=== PATIENT | female | born 1930 | race Caucasian/White ===

== ENCOUNTER 2017-05-27 02:49 | Observation (INO) | payer OTHER ==
[2017-05-27 03:26] LABS: ADD MAN DIFF? NO
[2017-05-27 03:36] LABS: WHITE BLOOD COUNT 6.9 10^3/ul (4.8-10.8)
[2017-05-27 03:36] LABS: BASOPHIL # 0.1 10^3/ul (0.0-0.1); EOSINOPHILS # 0.4 10^3/ul (0.0-0.5); EOSINOPHILS % 5.1 % (0.0-7.0); HEMOGLOBIN 11.5 g/dl (12.0-16.0); LYMPHOCYTES # 2.1 10^3/ul (0.8-2.9); LYMPHOCYTES % 30.1 % (15.0-51.0); MEAN CORPUSCULAR HEMOGLOBIN 31.2 pg (29.0-33.0); MEAN CORPUSCULAR HGB CONC 33.8 g/dl (32.0-37.0); MEAN CORPUSCULAR VOLUME 92.1 fl (82.0-101.0); MEAN PLATELET VOLUME 9.2 fl (7.4-10.4); MONOCYTE # 0.5 10^3/ul (0.3-0.9); MONOCYTES % 7.1 % (0.0-11.0); NEUTROPHIL # 3.9 10^3/ul (1.6-7.5); NEUTROPHILS % 56.1 % (39.0-77.0); PLATELET COUNT 195 10^3/UL (140-415); RED BLOOD COUNT 3.69 10^6/ul (4.20-5.40); RED CELL DISTRIBUTION WIDTH 12.5 % (11.5-14.5)
[2017-05-27] MEDS: morphine 2 MG INJ IV ×2 (03:56→09:38)
[2017-05-27] MEDS: ONDANSETRON 4 MG INJ IV (03:56)
[2017-05-27 03:58] LABS: ANION GAP 15 (8-16); BLOOD UREA NITROGEN 17 mg/dl (7-20); CARBON DIOXIDE 28 mmol/L (21-31); CHLORIDE 105 mmol/L (97-110); GLUCOSE 153 mg/dl (70-220); POTASSIUM 4.1 mmol/L (3.5-5.1); SODIUM 144 mmol/L (135-144)
[2017-05-27 04:06] LABS: TROPONIN-I < 0.012 ng/ml (0.00-0.12)
[2017-05-27] MEDS: morphine 4 MG/ML VIAL IV (05:05)
[2017-05-27] MEDS ORDERED: ONDANSETRON 4 MG INJ IV (06:30)
[2017-05-27] MEDS ORDERED: BISACODYL 10 MG SUPP PR (06:30)
[2017-05-27] MEDS ORDERED: NACL 0.9% 3 ML SYG IV (06:30)
[2017-05-27] MEDS ORDERED: ALBUTEROL/IPRATROPIUM (NEB) 3 ML AMP HHN (06:30)
[2017-05-27] MEDS ORDERED: NITROGLYCERIN (SL) 0.4 MG TAB SL (06:30)
[2017-05-27] MEDS ORDERED: GLUCOSE GEL 15 GRAM TUBE BUCCAL (07:00)
[2017-05-27] MEDS ORDERED: GLUCOSE GEL 15 GRAM TUBE PO ×2 (07:00)
[2017-05-27] MEDS ORDERED: DEXTROSE 50% 50 ML SYRINGE IV ×2 (07:00)
[2017-05-27] MEDS ORDERED: GLUCAGON 1 MG INJ IM (07:00)
[2017-05-27] MEDS ORDERED: LORAZEPAM 2 MG INJ (07:16)
[2017-05-27] MEDS: LORAZEPAM 2 MG INJ IV ×2 (07:20→14:30)
[2017-05-27] MEDS: ASPIRIN 81 MG TAB PO (09:37)
[2017-05-27] MEDS: CLOPIDOGREL 75 MG TAB PO (09:37)
[2017-05-27] MEDS: ENOXAPARIN 40 MG/0.4 ML SYG SC (09:37)
[2017-05-27] MEDS: ALPRAZOLAM 0.25 MG TAB PO ×2 (09:37→17:49)
[2017-05-27] MEDS: OLANZAPINE 2.5 MG TAB PO (09:38)
[2017-05-27] MEDS: NIACIN 500 MG TAB PO (09:38)
[2017-05-27] MEDS: LEVOTHYROXINE 88 MCG TAB PO (09:39)
[2017-05-27] MEDS: metFORMIN 500 MG TAB PO ×2 (09:39→17:24)
[2017-05-27] MEDS: RANOLAZINE (SR) 500 MG TAB PO ×2 (09:40→21:00)
[2017-05-27] MEDS: ASCORBIC ACID 500 MG TAB PO (09:40)
[2017-05-27] MEDS: LEVETIRACETAM 500 MG TAB PO ×2 (09:40→21:06)
[2017-05-27] MEDS: LISINOPRIL 20 MG TAB PO (09:41)
[2017-05-27] MEDS: LACOSAMIDE (100 MG/10 ML PO SYR) PO ×2 (10:35→21:00)
[2017-05-27] MEDS: FOLIC ACID 1 MG TAB PO (10:35)
[2017-05-27 10:54] LABS: CREATINE KINASE 30 IU/L (23-200)
[2017-05-27 11:08] LABS: CK INDEX 2.7; CK-MB 0.82 ng/ml (0.0-2.4); TROPONIN-I < 0.012 ng/ml (0.00-0.12)
[2017-05-27 16:42] LABS: HEMOGLOBIN A1C 5.8 % (0-5.9)
[2017-05-27] MEDS: INSULIN ASPART [NOVOLOG] 3 ML PEN SC ×2 (17:24→21:00)
[2017-05-27 17:25] LABS: CREATINE KINASE 31 IU/L (23-200)
[2017-05-27 17:36] LABS: CK INDEX 2.8; CK-MB 0.88 ng/ml (0.0-2.4)
[2017-05-27 17:40] LABS: TROPONIN-I < 0.012 ng/ml (0.00-0.12)
[2017-05-27] MEDS: ATORVASTATIN 40 MG TAB PO (21:06)
[2017-05-27] MEDS: DOCUSATE SODIUM 100 MG CAP PO (21:06)
[2017-05-28] MEDS: ACCU-CHEK XX (02:00)
[2017-05-28] MEDS: LORAZEPAM 2 MG INJ IV (03:10)
[2017-05-28] MEDS: LEVOTHYROXINE 88 MCG TAB PO (07:23)
[2017-05-28] MEDS: INSULIN ASPART [NOVOLOG] 3 ML PEN SC ×4 (08:00→20:16)
[2017-05-28 08:30] LABS: ADD MAN DIFF? NO
[2017-05-28 08:34] LABS: ABNORMAL IP MESSAGE 1; BASOPHIL # 0.1 10^3/ul (0.0-0.1); BASOPHILS % 0.8 % (0.0-2.0); EOSINOPHILS # 0.9 10^3/ul (0.0-0.5); HEMATOCRIT 36.9 % (37.0-47.0); HEMOGLOBIN 12.6 g/dl (12.0-16.0); LYMPHOCYTES # 1.6 10^3/ul (0.8-2.9); LYMPHOCYTES % 17.6 % (15.0-51.0); MEAN CORPUSCULAR HEMOGLOBIN 31.8 pg (29.0-33.0); MEAN CORPUSCULAR HGB CONC 34.1 g/dl (32.0-37.0); MEAN CORPUSCULAR VOLUME 93.2 fl (82.0-101.0); MEAN PLATELET VOLUME 9.6 fl (7.4-10.4); MONOCYTE # 0.4 10^3/ul (0.3-0.9); MONOCYTES % 4.9 % (0.0-11.0); NEUTROPHILS % 66.1 % (39.0-77.0); PLATELET COUNT 199 10^3/UL (140-415); RED BLOOD COUNT 3.96 10^6/ul (4.20-5.40); RED CELL DISTRIBUTION WIDTH 11.9 % (11.5-14.5)
[2017-05-28 08:39] LABS: POSITIVE DIFF @See below
[2017-05-28] MEDS: ARTIFICIAL TEARS 15 ML OPH BOTH EYES (08:50)
[2017-05-28] MEDS: LISINOPRIL 20 MG TAB PO (08:50)
[2017-05-28] MEDS: NIACIN 500 MG TAB PO (08:51)
[2017-05-28] MEDS: LEVETIRACETAM 500 MG TAB PO ×2 (08:51→20:15)
[2017-05-28] MEDS: DIVALPROEX (EC) 250 MG TAB PO (08:51)
[2017-05-28] MEDS: metFORMIN 500 MG TAB PO ×2 (08:51→17:35)
[2017-05-28] MEDS: ALPRAZOLAM 0.25 MG TAB PO (08:51)
[2017-05-28] MEDS: ASPIRIN 81 MG TAB PO (08:51)
[2017-05-28] MEDS: CLOPIDOGREL 75 MG TAB PO (08:51)
[2017-05-28] MEDS: OLANZAPINE 2.5 MG TAB PO (08:51)
[2017-05-28] MEDS: RANOLAZINE (SR) 500 MG TAB PO ×2 (08:51→20:14)
[2017-05-28] MEDS: ASCORBIC ACID 500 MG TAB PO (08:52)
[2017-05-28] MEDS: FOLIC ACID 1 MG TAB PO (08:52)
[2017-05-28] MEDS: ENOXAPARIN 40 MG/0.4 ML SYG SC (08:54)
[2017-05-28 08:57] LABS: ANION GAP 15 (8-16); BLOOD UREA NITROGEN 16 mg/dl (7-20); CALCIUM 10.3 mg/dl (8.4-10.2); CARBON DIOXIDE 30 mmol/L (21-31); CHLORIDE 101 mmol/L (97-110); GLUCOSE 137 mg/dl (70-220); MAGNESIUM 1.4 mg/dl (1.7-2.5); PHOSPHORUS 3.4 mg/dl (2.5-4.9); POTASSIUM 4.7 mmol/L (3.5-5.1); SODIUM 141 mmol/L (135-144)
[2017-05-28] MEDS: LACOSAMIDE (100 MG/10 ML PO SYR) PO ×2 (09:27→21:31)
[2017-05-28] MEDS: ACETAMINOPHEN 325 MG TAB PO (12:27)
[2017-05-28] MEDS: MAGNESIUM SULFATE 3 GM in DEXTROSE 5% 100 ML IVPB (12:28)
[2017-05-28] MEDS: DOCUSATE SODIUM 100 MG CAP PO (20:14)
[2017-05-28] MEDS: ATORVASTATIN 40 MG TAB PO (20:14)
[2017-05-28] MEDS: morphine LIQ (10 MG/5 ML) CUP PO (21:38)
[2017-05-29] MEDS: ACCU-CHEK XX (00:37)
[2017-05-29] MEDS: morphine LIQ (10 MG/5 ML) CUP PO (02:41)
[2017-05-29] MEDS: LEVOTHYROXINE 88 MCG TAB PO (05:20)
[2017-05-29] MEDS: INSULIN ASPART [NOVOLOG] 3 ML PEN SC ×3 (08:00→17:47)
[2017-05-29] MEDS: LEVETIRACETAM 500 MG TAB PO (08:16)
[2017-05-29] MEDS: RANOLAZINE (SR) 500 MG TAB PO (08:16)
[2017-05-29] MEDS: DIVALPROEX (EC) 250 MG TAB PO (08:16)
[2017-05-29] MEDS: OLANZAPINE 2.5 MG TAB PO (08:16)
[2017-05-29] MEDS: NIACIN 500 MG TAB PO (08:17)
[2017-05-29] MEDS: CLOPIDOGREL 75 MG TAB PO (08:17)
[2017-05-29] MEDS: FOLIC ACID 1 MG TAB PO (08:17)
[2017-05-29] MEDS: LISINOPRIL 20 MG TAB PO (08:18)
[2017-05-29] MEDS: ASCORBIC ACID 500 MG TAB PO (08:18)
[2017-05-29] MEDS: ASPIRIN 81 MG TAB PO (08:18)
[2017-05-29] MEDS: ENOXAPARIN 40 MG/0.4 ML SYG SC (08:21)
[2017-05-29] MEDS: metFORMIN 500 MG TAB PO ×2 (08:30→17:47)
[2017-05-29 08:45] LABS: ADD MAN DIFF? NO
[2017-05-29 09:04] LABS: BASOPHIL # 0.1 10^3/ul (0.0-0.1); BASOPHILS % 0.8 % (0.0-2.0); EOSINOPHILS # 0.4 10^3/ul (0.0-0.5); EOSINOPHILS % 5.5 % (0.0-7.0); HEMATOCRIT 38.8 % (37.0-47.0); HEMOGLOBIN 12.8 g/dl (12.0-16.0); LYMPHOCYTES # 2.1 10^3/ul (0.8-2.9); MEAN CORPUSCULAR HEMOGLOBIN 30.6 pg (29.0-33.0); MEAN CORPUSCULAR VOLUME 92.8 fl (82.0-101.0); MEAN PLATELET VOLUME 9.5 fl (7.4-10.4); MONOCYTE # 0.6 10^3/ul (0.3-0.9); MONOCYTES % 7.2 % (0.0-11.0); NEUTROPHIL # 4.5 10^3/ul (1.6-7.5); NEUTROPHILS % 59.1 % (39.0-77.0); PLATELET COUNT 205 10^3/UL (140-415); RED BLOOD COUNT 4.18 10^6/ul (4.20-5.40); RED CELL DISTRIBUTION WIDTH 11.9 % (11.5-14.5)
[2017-05-29 09:04] LABS: WHITE BLOOD COUNT 7.7 10^3/ul (4.8-10.8)
[2017-05-29 09:19] LABS: ANION GAP 15 (8-16); BLOOD UREA NITROGEN 20 mg/dl (7-20); CARBON DIOXIDE 30 mmol/L (21-31); CHLORIDE 100 mmol/L (97-110); CREATININE 0.74 mg/dl (0.44-1.00); GLUCOSE 106 mg/dl (70-220); POTASSIUM 4.4 mmol/L (3.5-5.1); SODIUM 141 mmol/L (135-144)
[2017-05-29 09:20] LABS: PHOSPHORUS 2.8 mg/dl (2.5-4.9)
[2017-05-29 09:20] LABS: MAGNESIUM 1.7 mg/dl (1.7-2.5)
[2017-05-29] MEDS: LACOSAMIDE (100 MG/10 ML PO SYR) PO (09:50)
== END 2017-05-29 19:56 ==
LOC: E/R 02:49 → MS4 06:38
DX: R07.9 Chest pain, unspecified (principal); F03.90 Unspecified dementia, unspecified severity, without behavioral disturbance, psychotic disturbance, mood disturbance, and anxiety; Z79.82 Long term (current) use of aspirin; I10 Essential (primary) hypertension; E11.9 Type 2 diabetes mellitus without complications; Z79.84 Long term (current) use of oral hypoglycemic drugs; I25.10 Atherosclerotic heart disease of native coronary artery without angina pectoris; Z95.1 Presence of aortocoronary bypass graft; G40.909 Epilepsy, unspecified, not intractable, without status epilepticus; Z86.73 Personal history of transient ischemic attack (TIA), and cerebral infarction without residual deficits; E03.9 Hypothyroidism, unspecified; F41.9 Anxiety disorder, unspecified; E78.5 Hyperlipidemia, unspecified; I35.0 Nonrheumatic aortic (valve) stenosis
CPT/HCPCS: 36415; 71045; 80048; 82550; 82553; 82962; 83036; 83735; 84100; 84484; 85025; 87081; 93005; 96372; 96374; 96375; 96376; 99285-25; G0378

== ENCOUNTER 2017-06-02 08:15 | Emergency (ER) | payer OTHER ==
[2017-06-02] MEDS: SOD CHLORIDE 0.9% 1,000 ML IV (08:35)
[2017-06-02] MEDS: LACTATED RINGER'S 1,000 ML IV (08:40)
[2017-06-02] MEDS: ONDANSETRON 4 MG INJ IV (08:40)
[2017-06-02] MEDS: morphine 4 MG/ML VIAL IV (08:40)
[2017-06-02 08:57] LABS: ADD MAN DIFF? NO
[2017-06-02 08:59] LABS: BASOPHIL # 0.1 10^3/ul (0.0-0.1); BASOPHILS % 0.5 % (0.0-2.0); EOSINOPHILS # 0.3 10^3/ul (0.0-0.5); EOSINOPHILS % 2.4 % (0.0-7.0); HEMATOCRIT 34.7 % (37.0-47.0); HEMOGLOBIN 11.6 g/dl (12.0-16.0); LYMPHOCYTES # 1.9 10^3/ul (0.8-2.9); LYMPHOCYTES % 13.7 % (15.0-51.0); MEAN CORPUSCULAR HEMOGLOBIN 31.4 pg (29.0-33.0); MEAN CORPUSCULAR HGB CONC 33.4 g/dl (32.0-37.0); MEAN PLATELET VOLUME 9.8 fl (7.4-10.4); MONOCYTE # 1.1 10^3/ul (0.3-0.9); NEUTROPHIL # 10.5 10^3/ul (1.6-7.5); NEUTROPHILS % 74.8 % (39.0-77.0); PLATELET COUNT 192 10^3/UL (140-415); RED BLOOD COUNT 3.69 10^6/ul (4.20-5.40); RED CELL DISTRIBUTION WIDTH 11.9 % (11.5-14.5)
[2017-06-02 09:21] LABS: ALANINE AMINOTRANSFERASE 46 IU/L (13-69); ALBUMIN 3.6 g/dl (3.3-4.9); ALBUMIN/GLOBULIN RATIO 1.16; ALKALINE PHOSPHATASE 97 IU/L (42-121); ANION GAP 16 (8-16); ASPARTATE AMINO TRANSFERASE 23 IU/L (15-46); BILIRUBIN,INDIRECT 0.2 mg/dl (0-1.1); BILIRUBIN,TOTAL 0.2 mg/dl (0.2-1.3); BLOOD UREA NITROGEN 24 mg/dl (7-20); CALCIUM 10.4 mg/dl (8.4-10.2); CARBON DIOXIDE 30 mmol/L (21-31); CHLORIDE 100 mmol/L (97-110); CREATININE 0.71 mg/dl (0.44-1.00); GLUCOSE 160 mg/dl (70-220); LIPASE 75 U/L (23-300); POTASSIUM 4.2 mmol/L (3.5-5.1); SODIUM 142 mmol/L (135-144); TOTAL PROTEIN 6.7 g/dl (6.1-8.1)
[2017-06-02 09:35] LABS: ADD UMIC YES; TROPONIN-I < 0.012 ng/ml (0.00-0.12); UR ASCORBIC ACID 40 mg/dL (NEGATIVE); UR BACTERIA FEW /HPF (NONE SEEN); UR BILIRUBIN (Dip) NEGATIVE (NEGATIVE); UR BLOOD (Dip) NEGATIVE (NEGATIVE); UR CLARITY SLIGHTLY CLOUDY (CLEAR); UR COLOR YELLOW (YELLOW); UR GLUCOSE (Dip) NEGATIVE (NEGATIVE); UR KETONES (Dip) NEGATIVE (NEGATIVE); UR LEUKOCYTE ESTERASE (Dip) 3+ Leu/ul (NEGATIVE); UR NITRITE (Dip) NEGATIVE (NEGATIVE); UR RBC 2 /HPF (0-5); UR RENAL EPITHELIAL CELL FEW /HPF (NONE SEEN); UR TOTAL PROTEIN (Dip) NEGATIVE (NEGATIVE); UR UROBILINOGEN (Dip) NEGATIVE (NEGATIVE); UR WBC 63 /HPF (0-5)
[2017-06-02] MEDS: CEFEPIME 1GM/50 ML (PMX) 50 ML IVPB (10:02)
== END 2017-06-02 15:07 | disposition home or self-care (01) ==
LOC: E/R 08:15
DX: E86.0 Dehydration (principal); N39.0 Urinary tract infection, site not specified; I10 Essential (primary) hypertension; E11.9 Type 2 diabetes mellitus without complications; E03.9 Hypothyroidism, unspecified; I25.10 Atherosclerotic heart disease of native coronary artery without angina pectoris; Z79.84 Long term (current) use of oral hypoglycemic drugs; Z79.82 Long term (current) use of aspirin; Z95.1 Presence of aortocoronary bypass graft
CPT/HCPCS: 36415; 74176; 80053; 81001; 83690; 84484; 85025; 93005; 96374; 96375; 99285-25

== ENCOUNTER 2018-07-05 00:58 | Inpatient (IN) | payer OTHER ==
[2018-07-05] MEDS: ASPIRIN 81 MG TAB PO (01:33)
[2018-07-05 01:41] LABS: ADD MAN DIFF? NO
[2018-07-05 02:30] LABS: ANION GAP 10 (5-13); BLOOD UREA NITROGEN 18 mg/dl (7-20); CALCIUM 10.3 mg/dl (8.4-10.2); CARBON DIOXIDE 24 mmol/L (21-31); CHLORIDE 105 mmol/L (97-110); CREATININE 0.52 mg/dl (0.44-1.00); GLUCOSE 147 mg/dl (70-220); SODIUM 139 mmol/L (135-144)
[2018-07-05] MEDS ORDERED: ACETAMINOPHEN 325 MG TAB PO ×2 (02:30→05:00)
[2018-07-05] MEDS ORDERED: ONDANSETRON 4 MG INJ IV ×2 (02:30→05:00)
[2018-07-05 02:42] LABS: B-TYPE NATRIURETIC PEPTIDE 128 PG/ML (0-450); TROPONIN-I < 0.012 ng/ml (0.000-0.120)
[2018-07-05 03:14] LABS: BASOPHIL # 0.1 10^3/ul (0.0-0.1); BASOPHILS % 0.9 % (0.0-2.0); EOSINOPHILS # 0.6 10^3/ul (0.0-0.5); EOSINOPHILS % 8.4 % (0.0-7.0); HEMATOCRIT 38.7 % (37.0-47.0); LYMPHOCYTES # 1.8 10^3/ul (0.8-2.9); LYMPHOCYTES % 25.4 % (15.0-51.0); MEAN CORPUSCULAR HEMOGLOBIN 31.3 pg (29.0-33.0); MEAN CORPUSCULAR HGB CONC 33.6 g/dl (32.0-37.0); MEAN CORPUSCULAR VOLUME 93.3 fl (82.0-101.0); MONOCYTE # 0.5 10^3/ul (0.3-0.9); MONOCYTES % 7.2 % (0.0-11.0); NEUTROPHIL # 4.1 10^3/ul (1.6-7.5); NEUTROPHILS % 57.5 % (39.0-77.0); PLATELET COUNT 179 10^3/UL (140-415); RED BLOOD COUNT 4.15 10^6/ul (4.20-5.40); RED CELL DISTRIBUTION WIDTH 11.4 % (11.5-14.5)
[2018-07-05 04:36] LABS: INR 0.91; PROTIME 12.4 Sec (11.9-14.9)
[2018-07-05] MEDS ORDERED: GLUCAGON 1 MG INJ IM (05:00)
[2018-07-05] MEDS ORDERED: NITROGLYCERIN (SL) 0.4 MG TAB SL (05:00)
[2018-07-05] MEDS ORDERED: GLUCOSE GEL 15 GRAM TUBE BUCCAL (05:00)
[2018-07-05] MEDS ORDERED: DEXTROSE 50% 50 ML SYRINGE IV ×2 (05:00)
[2018-07-05] MEDS ORDERED: GLUCOSE GEL 15 GRAM TUBE PO ×2 (05:00)
[2018-07-05] MEDS: INSULIN ASPART [NOVOLOG] 3 ML PEN SC ×4 (07:33→20:22)
[2018-07-05 07:49] LABS: ADD MAN DIFF? NO
[2018-07-05 07:54] LABS: BASOPHILS % 0.6 % (0.0-2.0); EOSINOPHILS # 0.5 10^3/ul (0.0-0.5); EOSINOPHILS % 6.9 % (0.0-7.0); HEMATOCRIT 38.4 % (37.0-47.0); HEMOGLOBIN 12.8 g/dl (12.0-16.0); LYMPHOCYTES # 1.7 10^3/ul (0.8-2.9); LYMPHOCYTES % 24.3 % (15.0-51.0); MEAN CORPUSCULAR HEMOGLOBIN 30.9 pg (29.0-33.0); MEAN CORPUSCULAR HGB CONC 33.3 g/dl (32.0-37.0); MEAN CORPUSCULAR VOLUME 92.8 fl (82.0-101.0); MEAN PLATELET VOLUME 8.9 fl (7.4-10.4); MONOCYTE # 0.5 10^3/ul (0.3-0.9); MONOCYTES % 6.9 % (0.0-11.0); NEUTROPHIL # 4.2 10^3/ul (1.6-7.5); NEUTROPHILS % 60.7 % (39.0-77.0); PLATELET COUNT 191 10^3/UL (140-415); RED BLOOD COUNT 4.14 10^6/ul (4.20-5.40); RED CELL DISTRIBUTION WIDTH 11.4 % (11.5-14.5)
[2018-07-05 07:54] LABS: WHITE BLOOD COUNT 6.9 10^3/ul (4.8-10.8)
[2018-07-05 08:15] LABS: ANION GAP 11 (5-13); BLOOD UREA NITROGEN 16 mg/dl (7-20); CALCIUM 10.1 mg/dl (8.4-10.2); CARBON DIOXIDE 27 mmol/L (21-31); CHLORIDE 99 mmol/L (97-110); CREATININE 0.54 mg/dl (0.44-1.00); GLUCOSE 130 mg/dl (70-220); POTASSIUM 4.6 mmol/L (3.5-5.1); SODIUM 137 mmol/L (135-144)
[2018-07-05 08:20] LABS: CREATINE KINASE 27 IU/L (23-200)
[2018-07-05 08:25] LABS: TROPONIN-I < 0.012 ng/ml (0.000-0.120)
[2018-07-05 08:27] LABS: CK INDEX 3.1; CK-MB 0.83 ng/ml (0.0-2.4); TROPONIN-I < 0.012 ng/ml (0.000-0.120)
[2018-07-05] MEDS: RANOLAZINE (SR) 500 MG TAB PO ×2 (09:33→20:17)
[2018-07-05] MEDS: LISINOPRIL 20 MG TAB PO (09:34)
[2018-07-05] MEDS: CLOPIDOGREL 75 MG TAB PO (09:34)
[2018-07-05] MEDS: LEVETIRACETAM 500 MG TAB PO ×2 (09:34→20:16)
[2018-07-05] MEDS: ALPRAZOLAM 0.25 MG TAB PO ×2 (11:35→20:17)
[2018-07-05] MEDS: OLANZAPINE 2.5 MG TAB PO (11:40)
[2018-07-05 14:12] LABS: CREATINE KINASE 28 IU/L (23-200)
[2018-07-05 14:26] LABS: CK INDEX 2.8; CK-MB 0.77 ng/ml (0.0-2.4); TROPONIN-I < 0.012 ng/ml (0.000-0.120)
[2018-07-05] MEDS: metFORMIN 500 MG TAB PO (17:08)
[2018-07-05] MEDS: ACCU-CHEK XX ×2 (17:30→21:24)
[2018-07-05 19:32] LABS: TROPONIN-I 0.034 ng/ml (0.000-0.120)
[2018-07-05] MEDS: ATORVASTATIN 40 MG TAB PO (20:15)
[2018-07-05] MEDS: DOCUSATE SODIUM 100 MG CAP PO (20:15)
[2018-07-06] MEDS: ACCU-CHEK XX ×5 (02:00→21:15)
[2018-07-06] MEDS: LEVOTHYROXINE 88 MCG TAB PO (06:30)
[2018-07-06] MEDS: HYDROCODONE/APAP (5/325) TAB PO ×3 (06:32→18:15)
[2018-07-06] MEDS: INSULIN ASPART [NOVOLOG] 3 ML PEN SC ×4 (07:37→21:00)
[2018-07-06] MEDS: CLOPIDOGREL 75 MG TAB PO (08:34)
[2018-07-06] MEDS: ASPIRIN 81 MG TAB PO (08:34)
[2018-07-06] MEDS: metFORMIN 500 MG TAB PO ×2 (08:34→18:15)
[2018-07-06] MEDS: LEVETIRACETAM 500 MG TAB PO ×2 (08:34→20:21)
[2018-07-06] MEDS: MAGNESIUM HYDROXIDE 30ML CUP PO (08:34)
[2018-07-06] MEDS: CYANOCOBALAMIN 500 MCG TAB PO (08:34)
[2018-07-06] MEDS: CALCITRIOL 0.25 MCG CAP PO (08:34)
[2018-07-06] MEDS: RANOLAZINE (SR) 500 MG TAB PO ×2 (08:35→20:21)
[2018-07-06] MEDS: CALCIUM CARBONATE 1.25 GM TAB PO (08:35)
[2018-07-06] MEDS: NIACIN 500 MG TAB PO (08:35)
[2018-07-06] MEDS: ASCORBIC ACID 500 MG TAB PO (08:35)
[2018-07-06] MEDS: LISINOPRIL 20 MG TAB PO (08:35)
[2018-07-06] MEDS: MULTIVITAMINS/MINERALS TAB PO (08:35)
[2018-07-06] MEDS: FOLIC ACID 1 MG TAB PO (08:36)
[2018-07-06] MEDS: ALPRAZOLAM 0.25 MG TAB PO ×2 (08:39→17:11)
[2018-07-06] MEDS: OLANZAPINE 2.5 MG TAB PO (08:39)
[2018-07-06] MEDS: MUPIROCIN 2% 22 GM OINT TOP ×2 (12:22→20:22)
[2018-07-06] MEDS: ENOXAPARIN 30 MG/0.3 ML SYG SC (17:16)
[2018-07-06] MEDS: DOCUSATE SODIUM 100 MG CAP PO (20:21)
[2018-07-06] MEDS: ATORVASTATIN 40 MG TAB PO (20:21)
[2018-07-07] MEDS: ACCU-CHEK XX ×5 (02:00→21:00)
[2018-07-07] MEDS: HYDROCODONE/APAP (5/325) TAB PO ×2 (03:28→20:20)
[2018-07-07 06:38] LABS: ANION GAP 10 (5-13); BLOOD UREA NITROGEN 24 mg/dl (7-20); CALCIUM 10.5 mg/dl (8.4-10.2); CARBON DIOXIDE 29 mmol/L (21-31); CHLORIDE 99 mmol/L (97-110); CREATININE 0.76 mg/dl (0.44-1.00); GLUCOSE 131 mg/dl (70-220); MAGNESIUM 1.5 mg/dl (1.7-2.5); POTASSIUM 4.8 mmol/L (3.5-5.1); SODIUM 138 mmol/L (135-144)
[2018-07-07] MEDS: INSULIN ASPART [NOVOLOG] 3 ML PEN SC ×4 (07:48→20:14)
[2018-07-07] MEDS: OLANZAPINE 2.5 MG TAB PO (08:17)
[2018-07-07] MEDS: RANOLAZINE (SR) 500 MG TAB PO ×2 (08:17→20:14)
[2018-07-07] MEDS: ASPIRIN 81 MG TAB PO (08:18)
[2018-07-07] MEDS: LEVETIRACETAM 500 MG TAB PO ×2 (08:18→20:14)
[2018-07-07] MEDS: FOLIC ACID 1 MG TAB PO (08:18)
[2018-07-07] MEDS: ASCORBIC ACID 500 MG TAB PO (08:18)
[2018-07-07] MEDS: CYANOCOBALAMIN 500 MCG TAB PO (08:19)
[2018-07-07] MEDS: LISINOPRIL 20 MG TAB PO (08:19)
[2018-07-07] MEDS: MULTIVITAMINS/MINERALS TAB PO (08:19)
[2018-07-07] MEDS: MUPIROCIN 2% 22 GM OINT TOP ×2 (08:20→20:20)
[2018-07-07] MEDS: NIACIN 500 MG TAB PO (08:20)
[2018-07-07] MEDS: LEVOTHYROXINE 88 MCG TAB PO (08:20)
[2018-07-07] MEDS: ENOXAPARIN 30 MG/0.3 ML SYG SC (08:29)
[2018-07-07] MEDS: CLOPIDOGREL 75 MG TAB PO (08:32)
[2018-07-07] MEDS: metFORMIN 500 MG TAB PO ×2 (08:32→16:58)
[2018-07-07] MEDS: CALCIUM CARBONATE 1.25 GM TAB PO (08:33)
[2018-07-07] MEDS: CALCITRIOL 0.25 MCG CAP PO (08:35)
[2018-07-07] MEDS: MAGNESIUM SULFATE 2 GM/50 ML 50 ML IVPB (10:32)
[2018-07-07] MEDS: MAGNESIUM HYDROXIDE 30ML CUP PO (14:24)
[2018-07-07] MEDS: ATORVASTATIN 40 MG TAB PO (20:14)
[2018-07-07] MEDS: DOCUSATE SODIUM 100 MG CAP PO (20:14)
[2018-07-08] MEDS: ACCU-CHEK XX ×5 (02:00→21:00)
[2018-07-08] MEDS: ALPRAZOLAM 0.25 MG TAB PO ×3 (02:56→22:21)
[2018-07-08] MEDS: LEVOTHYROXINE 88 MCG TAB PO (05:58)
[2018-07-08] MEDS: INSULIN ASPART [NOVOLOG] 3 ML PEN SC ×4 (08:00→20:38)
[2018-07-08] MEDS: CLOPIDOGREL 75 MG TAB PO (08:43)
[2018-07-08] MEDS: RANOLAZINE (SR) 500 MG TAB PO ×2 (08:43→20:27)
[2018-07-08] MEDS: CYANOCOBALAMIN 500 MCG TAB PO (08:43)
[2018-07-08] MEDS: OLANZAPINE 2.5 MG TAB PO (08:43)
[2018-07-08] MEDS: ASCORBIC ACID 500 MG TAB PO (08:43)
[2018-07-08] MEDS: CALCIUM CARBONATE 1.25 GM TAB PO (08:44)
[2018-07-08] MEDS: MULTIVITAMINS/MINERALS TAB PO (08:44)
[2018-07-08] MEDS: LEVETIRACETAM 500 MG TAB PO ×2 (08:44→20:27)
[2018-07-08] MEDS: LISINOPRIL 20 MG TAB PO (08:45)
[2018-07-08] MEDS: CALCITRIOL 0.25 MCG CAP PO (08:45)
[2018-07-08] MEDS: NIACIN 500 MG TAB PO (08:45)
[2018-07-08] MEDS: ASPIRIN 81 MG TAB PO (08:45)
[2018-07-08] MEDS: FOLIC ACID 1 MG TAB PO (08:45)
[2018-07-08] MEDS: ENOXAPARIN 30 MG/0.3 ML SYG SC (08:51)
[2018-07-08] MEDS: metFORMIN 500 MG TAB PO ×2 (08:59→17:06)
[2018-07-08] MEDS: MUPIROCIN 2% 22 GM OINT TOP ×2 (09:00→20:30)
[2018-07-08] MEDS: LORAZEPAM 2 MG INJ IV (11:07)
[2018-07-08 13:24] LABS: ADD MAN DIFF? NO
[2018-07-08 13:32] LABS: BASOPHIL # 0.1 10^3/ul (0.0-0.1); BASOPHILS % 0.7 % (0.0-2.0); EOSINOPHILS # 0.3 10^3/ul (0.0-0.5); HEMATOCRIT 45.2 % (37.0-47.0); HEMOGLOBIN 14.9 g/dl (12.0-16.0); LYMPHOCYTES # 2.5 10^3/ul (0.8-2.9); LYMPHOCYTES % 23.7 % (15.0-51.0); MEAN CORPUSCULAR HEMOGLOBIN 30.5 pg (29.0-33.0); MEAN CORPUSCULAR VOLUME 92.6 fl (82.0-101.0); MONOCYTE # 0.7 10^3/ul (0.3-0.9); MONOCYTES % 6.7 % (0.0-11.0); NEUTROPHIL # 6.9 10^3/ul (1.6-7.5); NEUTROPHILS % 65.4 % (39.0-77.0); PLATELET COUNT 216 10^3/UL (140-415); RED BLOOD COUNT 4.88 10^6/ul (4.20-5.40); RED CELL DISTRIBUTION WIDTH 11.6 % (11.5-14.5)
[2018-07-08 13:32] LABS: WHITE BLOOD COUNT 10.5 10^3/ul (4.8-10.8)
[2018-07-08 13:57] LABS: ANION GAP 10 (5-13); BLOOD UREA NITROGEN 20 mg/dl (7-20); CALCIUM 11.2 mg/dl (8.4-10.2); CARBON DIOXIDE 29 mmol/L (21-31); CHLORIDE 100 mmol/L (97-110); GLUCOSE 159 mg/dl (70-220); SODIUM 139 mmol/L (135-144)
[2018-07-08 17:36] LABS: ADD UMIC NO; UR ASCORBIC ACID 40 mg/dL (NEGATIVE); UR BILIRUBIN (Dip) NEGATIVE (NEGATIVE); UR BLOOD (Dip) NEGATIVE (NEGATIVE); UR CLARITY CLEAR (CLEAR); UR COLOR YELLOW (YELLOW); UR GLUCOSE (Dip) NEGATIVE (NEGATIVE); UR KETONES (Dip) NEGATIVE (NEGATIVE); UR LEUKOCYTE ESTERASE (Dip) NEGATIVE Leu/ul (NEGATIVE); UR NITRITE (Dip) NEGATIVE (NEGATIVE); UR SPECIFIC GRAVITY (Dip) 1.014 (1.003-1.030); UR TOTAL PROTEIN (Dip) NEGATIVE (NEGATIVE); UR UROBILINOGEN (Dip) NEGATIVE (NEGATIVE)
[2018-07-08] MEDS: ATORVASTATIN 40 MG TAB PO (20:27)
[2018-07-08] MEDS: DOCUSATE SODIUM 100 MG CAP PO (20:27)
[2018-07-08] MEDS: morphine 2 MG INJ IV (21:46)
[2018-07-09] MEDS: ACCU-CHEK XX ×5 (02:00→21:24)
[2018-07-09 06:10] LABS: ADD MAN DIFF? NO
[2018-07-09 06:20] LABS: WHITE BLOOD COUNT 8.3 10^3/ul (4.8-10.8)
[2018-07-09 06:20] LABS: BASOPHIL # 0.1 10^3/ul (0.0-0.1); BASOPHILS % 1.2 % (0.0-2.0); EOSINOPHILS # 0.4 10^3/ul (0.0-0.5); EOSINOPHILS % 5.1 % (0.0-7.0); HEMATOCRIT 40.9 % (37.0-47.0); HEMOGLOBIN 13.7 g/dl (12.0-16.0); LYMPHOCYTES # 2.4 10^3/ul (0.8-2.9); LYMPHOCYTES % 28.6 % (15.0-51.0); MEAN CORPUSCULAR HEMOGLOBIN 30.8 pg (29.0-33.0); MEAN CORPUSCULAR HGB CONC 33.5 g/dl (32.0-37.0); MEAN CORPUSCULAR VOLUME 91.9 fl (82.0-101.0); MEAN PLATELET VOLUME 9.3 fl (7.4-10.4); MONOCYTE # 0.7 10^3/ul (0.3-0.9); MONOCYTES % 8.6 % (0.0-11.0); NEUTROPHIL # 4.7 10^3/ul (1.6-7.5); NEUTROPHILS % 56.1 % (39.0-77.0); PLATELET COUNT 209 10^3/UL (140-415); RED BLOOD COUNT 4.45 10^6/ul (4.20-5.40); RED CELL DISTRIBUTION WIDTH 11.6 % (11.5-14.5)
[2018-07-09 06:52] LABS: ANION GAP 9 (5-13); BLOOD UREA NITROGEN 23 mg/dl (7-20); CALCIUM 10.2 mg/dl (8.4-10.2); CARBON DIOXIDE 28 mmol/L (21-31); CHLORIDE 99 mmol/L (97-110); CREATININE 0.72 mg/dl (0.44-1.00); GLUCOSE 143 mg/dl (70-220); POTASSIUM 4.3 mmol/L (3.5-5.1); SODIUM 136 mmol/L (135-144)
[2018-07-09] MEDS: LEVOTHYROXINE 88 MCG TAB PO (06:55)
[2018-07-09] MEDS: INSULIN ASPART [NOVOLOG] 3 ML PEN SC ×4 (07:46→20:55)
[2018-07-09] MEDS: metFORMIN 500 MG TAB PO ×2 (07:48→17:51)
[2018-07-09] MEDS: LISINOPRIL 20 MG TAB PO (08:41)
[2018-07-09] MEDS: CYANOCOBALAMIN 500 MCG TAB PO (08:41)
[2018-07-09] MEDS: FOLIC ACID 1 MG TAB PO (08:41)
[2018-07-09] MEDS: MULTIVITAMINS/MINERALS TAB PO (08:41)
[2018-07-09] MEDS: ASPIRIN 81 MG TAB PO (08:41)
[2018-07-09] MEDS: LEVETIRACETAM 500 MG TAB PO ×2 (08:41→20:50)
[2018-07-09] MEDS: CLOPIDOGREL 75 MG TAB PO (08:41)
[2018-07-09] MEDS: CALCITRIOL 0.25 MCG CAP PO (08:42)
[2018-07-09] MEDS: CALCIUM CARBONATE 1.25 GM TAB PO (08:42)
[2018-07-09] MEDS: OLANZAPINE 2.5 MG TAB PO (08:42)
[2018-07-09] MEDS: ASCORBIC ACID 500 MG TAB PO ×2 (08:43→09:00)
[2018-07-09] MEDS: MUPIROCIN 2% 22 GM OINT TOP ×2 (08:43→21:24)
[2018-07-09] MEDS: NIACIN 500 MG TAB PO (08:43)
[2018-07-09] MEDS: RANOLAZINE (SR) 500 MG TAB PO ×2 (08:43→20:49)
[2018-07-09] MEDS: ENOXAPARIN 30 MG/0.3 ML SYG SC (08:49)
[2018-07-09] MEDS: HYDROCODONE/APAP (5/325) TAB PO ×2 (17:55→23:29)
[2018-07-09] MEDS: DOCUSATE SODIUM 100 MG CAP PO (20:49)
[2018-07-09] MEDS: ATORVASTATIN 40 MG TAB PO (20:50)
[2018-07-10] MEDS: ACCU-CHEK XX ×5 (01:46→21:00)
[2018-07-10] MEDS: morphine 2 MG INJ IV ×2 (02:39→18:13)
[2018-07-10] MEDS: HYDROCODONE/APAP (5/325) TAB PO (06:44)
[2018-07-10] MEDS: LEVOTHYROXINE 88 MCG TAB PO (06:44)
[2018-07-10] MEDS: INSULIN ASPART [NOVOLOG] 3 ML PEN SC ×4 (07:50→20:59)
[2018-07-10] MEDS: metFORMIN 500 MG TAB PO ×3 (07:50→18:09)
[2018-07-10] MEDS: ENOXAPARIN 30 MG/0.3 ML SYG SC ×2 (08:40→09:00)
[2018-07-10] MEDS: CLOPIDOGREL 75 MG TAB PO ×2 (08:41→09:00)
[2018-07-10] MEDS: MULTIVITAMINS/MINERALS TAB PO ×2 (08:41→09:00)
[2018-07-10] MEDS: CALCITRIOL 0.25 MCG CAP PO ×2 (08:41→09:00)
[2018-07-10] MEDS: FOLIC ACID 1 MG TAB PO ×2 (08:41→09:00)
[2018-07-10] MEDS: ASCORBIC ACID 500 MG TAB PO ×2 (08:43→09:00)
[2018-07-10] MEDS: ASPIRIN 81 MG TAB PO ×2 (08:43→09:00)
[2018-07-10] MEDS: LEVETIRACETAM 500 MG TAB PO ×3 (08:43→20:59)
[2018-07-10] MEDS: CYANOCOBALAMIN 500 MCG TAB PO ×2 (08:43→09:00)
[2018-07-10] MEDS: NIACIN 500 MG TAB PO ×2 (08:44→09:00)
[2018-07-10] MEDS: CALCIUM CARBONATE 1.25 GM TAB PO ×2 (08:44→09:00)
[2018-07-10] MEDS: OLANZAPINE 2.5 MG TAB PO ×2 (08:44→09:00)
[2018-07-10] MEDS: LISINOPRIL 20 MG TAB PO ×2 (08:45→09:00)
[2018-07-10] MEDS: MUPIROCIN 2% 22 GM OINT TOP ×3 (08:46→20:59)
[2018-07-10] MEDS: RANOLAZINE (SR) 500 MG TAB PO ×2 (09:00→20:59)
[2018-07-10] MEDS: ALPRAZOLAM 0.25 MG TAB PO ×3 (09:21→20:57)
[2018-07-10] MEDS: ATORVASTATIN 40 MG TAB PO (20:59)
[2018-07-10] MEDS: DOCUSATE SODIUM 100 MG CAP PO (20:59)
== END 2018-07-10 21:55 | DRG 313 ==
LOC: 6WM 07-06 08:17 → 5EC 07-10 12:40 → E/R 00:58 → MS1 07-09 23:07 → 6WM 02:18
DX: R07.89 Other chest pain (principal); F01.51 Vascular dementia, unspecified severity, with behavioral disturbance; R45.1 Restlessness and agitation; E83.42 Hypomagnesemia; Z95.1 Presence of aortocoronary bypass graft; Z79.02 Long term (current) use of antithrombotics/antiplatelets; E03.9 Hypothyroidism, unspecified; Z79.82 Long term (current) use of aspirin; I10 Essential (primary) hypertension; E11.9 Type 2 diabetes mellitus without complications; I25.2 Old myocardial infarction; Z86.73 Personal history of transient ischemic attack (TIA), and cerebral infarction without residual deficits; G40.909 Epilepsy, unspecified, not intractable, without status epilepticus
CPT/HCPCS: 36415; 71045; 80048; 81003; 82550; 82553; 82962; 83735; 83880; 84484; 85025; 85610; 87081; 93005; 93306; 97161; 97165; 99285-25